=== PATIENT | female | born 1955 | race Caucasian/White ===

== ENCOUNTER → 2019-01-28 | Outpatient (CLI) | payer OTHER ==
[~2019-01-28] MED LIST: ASPI81CH PO; ATOR20 PO; DICL75ER PO; LEVSOD100 PO
== END | disposition home or self-care (01) ==
LOC: LAB 19:34 → LAB SHORT 19:34
DX: E03.9 Hypothyroidism, unspecified (principal)
CPT/HCPCS: 84443

== ENCOUNTER → 2019-03-04 | Outpatient (CLI) | payer OTHER | LOC: LAB 19:50 → LAB SHORT 19:50 | DX: E03.9 Hypothyroidism, unspecified (principal) | CPT/HCPCS: 84443 ==

== ENCOUNTER → 2019-05-03 | Outpatient (CLI) | payer OTHER ==
[2019-05-03 12:40] LABS: CHOL/HDL RATIO 2.5; Cholesterol 194 mg/dL (50-200); HDL Cholesterol 79 mg/dL (>39); LDL/HDL RATIO 1.3; Low Density Lipoprotein Chol 101 mg/dL (0-110); Triglycerides 72 mg/dL (30-160); Very Low Density Lipoprot Chol 14 mg/dL (6-32)
== END | disposition home or self-care (01) ==
LOC: LAB SHORT 11:44 → LAB 11:44
PROVIDERS: Physician Assistant
DX: E78.5 Hyperlipidemia, unspecified (principal)
CPT/HCPCS: 80061

== ENCOUNTER → 2022-07-08 | Outpatient (CLI) | payer OTHER ==
[2022-07-08 18:31] LABS: BASOPHILS ABSOLUTE AUTO 0.05 K/mm3 (0.00-0.23); BASOPHILS PERCENT AUTO 1 % (0-2); EOSINOPHILS ABSOLUTE AUTO 0.08 K/mm3 (0.00-0.68); EOSINOPHILS PERCENT AUTO 1 % (0-6); Hematocrit 40.3 % (33.0-51.0); Hemoglobin 13.6 g/dL (11.5-16.0); IMMATURE GRAN ABSOLUTE AUTO 0.01 K/mm3 (0.00-0.10); IMMATURE GRAN PERCENT AUTO 0 % (0-1); LYMPHOCYTES ABSOLUTE AUTO 2.22 K/mm3 (0.84-5.20); LYMPHOCYTES PERCENT AUTO 40 % (21-46); MONOCYTES ABSOLUTE AUTO 0.65 K/mm3 (0.16-1.47); MONOCYTES PERCENT AUTO 12 % (4-13); Mean Corpuscular HGB 30.3 pg (26.0-34.0); Mean Corpuscular HGB Conc 33.7 g/dL (31.5-36.5); Mean Corpuscular Volume 90 fL (80-100); Mean Platelet Volume 10.7 fL (9.1-12.4); NEUTROPHILS ABSOLUTE AUTO 2.52 K/mm3 (1.96-9.15); NEUTROPHILS PERCENT AUTO 46 % (41-73); Platelet Count 282 K/mm3 (150-400); RDW Coefficient Variation 13.9 % (11.7-14.2); RDW Standard Deviation 45.9 fL (35.1-46.3); Red Blood Cell Count 4.49 M/mm3 (3.80-5.20); White Blood Cell Count 5.53 K/mm3 (4.00-11.30)
[2022-07-08 21:38] LABS: Albumin, Blood 3.9 g/dL (3.4-5.0); Albumin/Globulin Ratio 1.3 (0.8-1.8); Bilirubin, Total 0.4 mg/dL (0.1-1.0); Bun/Creatinine Ratio 26.9 (12.0-20.0); Calcium, Blood 8.9 mg/dL (8.5-10.1); Creatinine, Blood 0.56 mg/dL (0.40-1.00); Free Thyroxine 1.48 ng/dL (0.70-1.60); Globulin, Blood 2.9 g/dL (2.2-4.0); Potassium, Blood 3.9 mmol/L (3.5-5.5); Thyroid Stimulating Hormone 0.597 uIU/mL (0.360-4.800); Total Protein, Blood 6.8 g/dL (6.4-8.2)
[2022-07-08 21:48] LABS: CHOL/HDL RATIO 3.8; Cholesterol 216 mg/dL (50-200); HDL Cholesterol 57 mg/dL (>39); LDL/HDL RATIO 2.5; Low Density Lipoprotein Chol 142 mg/dL (0-110); Triglycerides 83 mg/dL (30-160); Very Low Density Lipoprot Chol 16 mg/dL (6-32)
== END | disposition home or self-care (01) ==
LOC: LAB SHORT 17:11
PROVIDERS: Family Medicine
DX: E78.5 Hyperlipidemia, unspecified (principal)
CPT/HCPCS: 80053; 80061; 84439; 84443; 85025

== ENCOUNTER 2022-11-28 07:23 | Day surgery (SDC) | payer OTHER ==
[~2022-11-28] VITALS: Ht 160 cm; Wt 68.8 kg
[~2022-11-28 07:23] MED LIST changes: +ALEN70 PO; +FAMO20; +METO25ER
--- NOTE | 2022-11-28 08:44 | NUR ---
11/28/22 0844 Garrett Hawkins HISTORY, CHART, MEDICATIONS AND ALLERGIES REVIEWED BEFORE START OF PROCEDURE. PATIENT CONFIRMS NPO STATUS AND AGREES WITH SCHEDULED PROCEDURE. 3-LEAD EKG REVIEWED WITH PHYSICIAN PRIOR TO START OF PROCEDURE. MONITOR INTACT WITH CONTINUOUS PULSE OXIMETRY,CAPNOGRAPHY, 3-LEAD EKG, INTERMITTENT BP. SUPPLEMENTAL O2 TO BE TITRATED THROUGHOUT PROCEDURE TO MAINTAIN O2 SATURATION ABOVE 90%. PATIENT DETERMINED TO BE ASA APPROPRIATE FOR PROPOFOL SEDATION PRIOR TO START OF PROCEDURE BY
--- NOTE | 2022-11-28 09:52 | NUR ---
PT AXO COMMUNICATING APPROPRIATELY W STAFF. PT ON RM AIR. PT TOLERATING PO FLUIDS. PT UP AT BEDSIDE DENYING ANY SYMPTOMS. GAIT APPEARS STRONG AND STEADY.
--- NOTE | 2022-11-28 09:57 | NUR ---
Ambulatory in Day Surgery Discharge instructions reviewed with patient. Patient verbalizes understanding. Copy given to patient to take home. Lungs clear T/O to Auscultation. Patient States Post-Procedure ride home has been arranged. Discharged via wheelchair to private car for ride home.
== END 2022-11-28 22:42 | disposition home or self-care (01) ==
LOC: ORSCMMR 07:23 → ORD 08:30 → ORSCMMR 22:42
PROVIDERS: Internal Medicine Gastroenterology
PROC: 0DBH8ZX Excision of Cecum, Via Natural or Artificial Opening Endoscopic, Diagnostic (ICD-10-PCS; principal; 2022-11-28 08:30)
PROC: 0DBK8ZX Excision of Ascending Colon, Via Natural or Artificial Opening Endoscopic, Diagnostic (ICD-10-PCS; principal; 2022-11-28 08:30)
PROC: 0DB78ZX Excision of Stomach, Pylorus, Via Natural or Artificial Opening Endoscopic, Diagnostic (ICD-10-PCS; principal; 2022-11-28 08:30)
PROC: 0DB48ZX Excision of Esophagogastric Junction, Via Natural or Artificial Opening Endoscopic, Diagnostic (ICD-10-PCS; principal; 2022-11-28 08:30)
PROC: 0DB58ZX Excision of Esophagus, Via Natural or Artificial Opening Endoscopic, Diagnostic (ICD-10-PCS; principal; 2022-11-28 08:30)
DX: Z12.11 Encounter for screening for malignant neoplasm of colon (principal); Z80.0 Family history of malignant neoplasm of digestive organs; Z86.010 Personal history of colon polyps; K21.9 Gastro-esophageal reflux disease without esophagitis; D12.2 Benign neoplasm of ascending colon; D12.0 Benign neoplasm of cecum; K57.30 Diverticulosis of large intestine without perforation or abscess without bleeding; E03.9 Hypothyroidism, unspecified; E78.00 Pure hypercholesterolemia, unspecified; Z79.899 Other long term (current) drug therapy; Z87.891 Personal history of nicotine dependence
CPT/HCPCS: 88305; 88342; A9270; J2704; J7120